=== PATIENT | male | born 1945 | race Caucasian/White ===

== ENCOUNTER 2016-08-31 11:29 | Emergency (ER) | payer OTHER ==
[2016-08-31] MEDS ORDERED: HYDROmorphONE/DILAUDID 1 MG/ML SYR IVP ONE (11:50)
[2016-08-31] MEDS ORDERED: ONDANSETRON 4 MG/2 ML VIAL IVP ONE (11:50)
--- NOTE | 2016-08-31 11:50 | EDPHY ---
H & P Time Seen by Provider: 08/31/16 11:44 HPI/ROS: Chief complaint. Left hip pain HPI. Patient is 71-year-old male with left hip pain. He was sitting on a stool gardening and twisted and had sudden pain to the left hip. He has a hip prosthesis which is been present for 14 years without difficulty or previous dislocations. Now he has pain left hip with deformity of his leg and the pain is worse with movement. He is unable to stand or walk ROS Constitutional. no fever/chills, no weakness Eyes. no problems with vision ENT. no sore throat, no nasal drainage Cardiovascular. no chest pain Respiratory. no shortness of breath, no cough Abdominal. no abdominal pain, no nausea/vomiting, no diarrhea . no problems urinating MS. Left hip pain Skin. no rash Lymph. no swollen glands Neuro. no headache, no dizziness, no difficulty walking or with speech Past Medical/Surgical History: Bilateral hip replacement Social History: , nonsmoker, no alcohol Physical Exam: General Appearance: Alert well-developed male moderate distress vital signs are stable Eyes: Pupils equal and round no pallor or injection. ENT, Mouth: Mucous membranes are moist. Respiratory: There are no retractions, lungs are clear to auscultation. Cardiovascular: Regular rate and rhythm. Gastrointestinal: Abdomen is soft and nontender, no masses, bowel sounds normal. Neurological: Awake and alert, sensory and motor exams grossly normal. Skin: Warm and dry, no rashes. Musculoskeletal: Neck is supple nontender. Extremities pain with palpation and range of motion about the left hip. The left leg is shortened and internally rotated Psychiatric: Patient is oriented X 3, there is no agitation. Constitutional: Initial Vital Signs Temperature (C) 36.7 C 08/31/16 11:29 Heart Rate 66 08/31/16 11:29 Respiratory Rate 14 08/31/16 11:29 Blood Pressure 178/127 H 08/31/16 11:29 O2 Sat (%) 93 08/31/16 11:29 O2 Delivery Mode [Procedural Room Air 2nd] O2 Delivery Mode [Procedural Non-Rebreather Mask 1st] O2 Delivery Mode Room Air O2 (L/minute) [Procedural 1st] 15 Allergies/Adverse Reactions: No Known Allergies Allergy (Unverified 08/31/16 11:51) Home Medications: Medication Instructions Recorded Hydrochlorothiazide [HCTZ (*)] 12.5 mg PO DAILY 08/31/16 Medical Decision Making - Diagnostics Imaging: Imaging Impressions Hip X-Ray 08/31/16 11:40 Impression: Posterior dislocation of a left hip arthroplasty. Hip X-Ray 08/31/16 12:32 Impression: Interval reduction of left hip dislocation. X-ray left hip interpreted by me shows what appears to be a posterior dislocation of the hip prosthesis Post reduction x-ray shows good anatomic position. It does appear that the cup of the arthroplasty maybe cracked. Procedures: IV normal saline. Fentanyl and Zofran intravenously Procedure: Conscious sedation. Indication: Hip dislocation I will perform both sedation and procedure The patient is an appropriate candidate to tolerate procedural sedation. The patient's vital signs and mental status are appropriate. The risks, benefits and alternatives of the sedation were discussed with the patient. The patient is ASA classification 1. The patient's Mallampati airway score was 1 and the patient did meet the 3-3- 2 airway measurements. A time out was completed. The patient was sedated with Dilaudid preprocedure and then propofol 80 mg intravenously The patient was monitored with continuous pulse oximetry, monitoring engineer and end tidal CO2. There were no complications and no significant hypoxemia. I performed both the sedation and the procedure. The total time I spent at the bedside during the procedural sedation was 20 minutes. The patient was examined after the procedural sedation and has returned to their pre-sedation baseline with normal vital signs and a normal examination. Procedure hip reduction. After adequate anesthesia we used traction counter traction technique to reduce the posterior dislocation left hip. There was an audible pop as the hip was reduced. Post reduction distal motor vascular sensitivity is intact ED Course/Re-evaluation: Patient tolerated procedure and sedation well. He is stable for discharge. The patient, his , and I discussed treatment plan and criteria for return importance of follow-up and further evaluation. They expressed understanding and agreement Differential Diagnosis: I considered fracture, dislocation. The patient's hip prosthesis has been dislocated posteriorly and now reduced into anatomic position. It does appear that the cut may have a small crack in it that possibly has helped the hip to dislocate. - Data Points Medications Given: Discontinued Medications Hydromorphone HCl (Dilaudid) 0.5 mg IVP EDNOW ONE Stop: 08/31/16 11:51 Last Admin: 08/31/16 12:00 Dose: 0.5 mg Ondansetron HCl (Zofran) 4 mg IVP EDNOW ONE Stop: 08/31/16 11:51 Last Admin: 08/31/16 12:34 Dose: 4 mg Propofol (Diprivan) 100 mg IVP EDNOW ONE Stop: 08/31/16 12:10 Last Admin: 08/31/16 12:34 Dose: 70 mg Departure - Departure Disposition: Home, Routine, Self-Care Clinical Impression: Posterior dislocation of left hip Qualifiers: Encounter type: initial encounter Qualified Code(s): S73.015A - Posterior dislocation of left hip, initial encounter Condition: Good Instructions: Hip Dislocation (ED) Additional Instructions: Ice to left hip 1st 24 hours. Tylenol or Advil as needed for discomfort. You may walking have easy activity but no tenderness or guarding. Sleep with a pillow between her legs. Call [place] tomorrow to arrange further orthopedic evaluation Referrals: [facility] [Other] - As per Instructions
[2016-08-31] MEDS ORDERED: PROPOFOL 200 MG/20 ML VIAL IVP ONE (12:09)
[2016-08-31 13:30] VITALS: BP 126/84; PULSE 81; RESP 16; TEMP 97.5; O2SAT 98
== END 2016-08-31 13:30 | disposition home or self-care (01) ==
PROC: 0SSBXZZ Reposition Left Hip Joint, External Approach (ICD-10-PCS; principal; 2016-08-31)
DX: T84.021A Dislocation of internal left hip prosthesis, initial encounter (principal); Z96.643 Presence of artificial hip joint, bilateral; X58.XXXA Exposure to other specified factors, initial encounter; Y82.9 Unspecified medical devices associated with adverse incidents
CPT/HCPCS: 27265; 73502; 96374; 96375; 99152; 99285; J1170; J2405